=== PATIENT | male | born 1945 | race Caucasian/White ===

== ENCOUNTER 2016-08-21 02:39 | Emergency (ER) | payer BC ==
[2016-08-21] MEDS ORDERED: KETOROLAC TROMETHAMINE 15 MG/ML VIAL ONE (02:54)
[2016-08-21] MEDS ORDERED: HYDROMORPHONE HCL 1 MG/ML SYRINGE ONE ×2 (02:54→03:56)
[2016-08-21] MEDS ORDERED: ONDANSETRON 4 MG ODT TAB ONE (02:54)
[2016-08-21 03:01] LABS: SPECIFIC GRAVITY 1.025 (1.001-1.030); URINE BILIRUBIN NEGATIVE (NEGATIVE); URINE BLOOD NEGATIVE (NEGATIVE); URINE GLUCOSE (UA) NEGATIVE (NEGATIVE); URINE LEUKOCYTE ESTERASE NEGATIVE (NEGATIVE); URINE NITRITE NEGATIVE (NEGATIVE); URINE PROTEIN 1+ (NEGATIVE); URINE UROBILINOGEN NORMAL (0-1 mg/dl)
[2016-08-21 03:01] LABS: ABSOLUTE NEUTROPHIL COUNT 3.6 K/mm3 (1.8-7.7); BASO % 0.6 % (0.2-1.0); EOS # 0.3 (0.0-0.5); HEMATOCRIT 45.2 % (32.0-52.0); IMM NEUT% 0.5 % (0-1); LYMPH # 1.9 (1.0-4.8); LYMPH % 29.7 % (15-45); MEAN CELL VOLUME 94.4 fl (80.0-94.0); MEAN CORPUSCULAR HEMOGLOBIN 31.3 pg (27.0-31.0); MEAN CORPUSCULAR HGB CONC 33.2 g/dl (33.0-37.0); MEAN PLATELET VOLUME 9.1 fl (7.4-10.4); MONO # 0.7 (0.0-0.8); NEUT % 55.2 % (43-75); PLATELET COUNT 319 K/mm3 (130-400); RED CELL DISTRIBUTION WIDTH 11.9 % (11.5-14.5)
[2016-08-21 03:07] LABS: URINE APPEARANCE CLEAR; URINE COLOR YELLOW
[2016-08-21 03:14] LABS: URINE RBC RARE /hpf
[2016-08-21 03:14] LABS: ALB/GLOB RATIO 1.7 (>1.0); CALCIUM 9.3 mg/dL (8.6-10.3)
[2016-08-21 03:15] LABS: URINE BACTERIA 0; URINE EPITHELIAL CELLS 0 /hpf; URINE WBC RARE /hpf
--- NOTE | 2016-08-21 08:31 | RAD ---
ABDOMEN OR KUB COMPARISON: Ultrasound kidneys and retroperitoneal, 07/28/2012 HISTORY: 70-year-old male with right flank pain. Past medical history of 2 nonobstructive stones in the right kidney and bladder stones. FINDINGS: View: Supine abdomen. Bowel gas pattern: The small bowel is not distended. There is moderate fecal loading. Organomegaly: None. Soft tissue calcification: None. Surgical clips: None. Bones: No acute finding. Mild degenerative changes. IMPRESSION: 1. No visible stones in the kidneys, ureters, or bladder. CT is much more sensitive in the detection of stones, however. 2. Evidence of mild constipation. 3. Degenerative changes in the spine and pelvis.
== END 2016-08-21 04:38 | disposition home or self-care (01) ==
LOC: ED 02:39
DX: N20.1 Calculus of ureter (principal); Z87.442 Personal history of urinary calculi; Z87.891 Personal history of nicotine dependence
CPT/HCPCS: 85025; 80053; 81001; 74000; 96375; 96376; 99284; 96374; 99283; J1170 ×2; J1885; A9270

== ENCOUNTER 2016-08-21 22:11 | Emergency (ER) | payer BC ==
[2016-08-21] MEDS ORDERED: KETOROLAC TROMETHAMINE 15 MG/ML VIAL ONE (22:39)
[2016-08-21] MEDS ORDERED: ONDANSETRON 4 MG/2ML 2 ML VIAL ONE (22:39)
[2016-08-21] MEDS ORDERED: HYDROMORPHONE HCL 0.5 MG/0.5 ML SYRINGE ONE (22:39)
[2016-08-22] MEDS ORDERED: ONDANSETRON 4 MG ODT TAB ONE (00:19)
--- NOTE | 2016-08-22 07:57 | CT ---
Exam: CT abdomen and pelvis without contrast COMPARISON: Radiograph 08/21/[address] 08/04/2011 INDICATION: Left flank pain. TECHNIQUE: CT examination of the abdomen and pelvis was obtained without contrast using a renal stone protocol. FINDINGS: There is a 7 mm calculus at the left UPJ which is associated with mild left-sided hydronephrosis and mild asymmetric perinephric and retroperitoneal fat stranding. No additional calculi are identified within either kidney, ureter or bladder. Minor cortical scarring is again noted in the right kidney. There is moderate prostatomegaly. There is no significant pelvic lymphadenopathy by size criteria. The bowel, including the appendix, is unremarkable and there is no bowel obstruction, free air or free intraperitoneal fluid. The liver, spleen, pancreas, adrenal glands and gallbladder are unremarkable on this noncontrast exam. Small hiatal hernia is noted. There is minor atelectasis or scarring within the lung bases, right greater than left. Bridging osteophytes are noted within the thoracic spine. IMPRESSION: 1. 7 mm calculus at the left UPJ which is associated with mild left-sided hydronephrosis and asymmetric perinephric and retroperitoneal stranding. No additional urinary calculi are identified. 2. A few stable incidental findings as above. Preliminary report transmitted to the emergency department from [facility] at 2324 hours 08/21/2016
== END 2016-08-22 00:23 | disposition home or self-care (01) ==
LOC: ED 22:11
DX: N20.1 Calculus of ureter (principal); R11.10 Vomiting, unspecified; Z87.442 Personal history of urinary calculi; Z87.891 Personal history of nicotine dependence
CPT/HCPCS: 74176; 96375 ×2; 99283 ×2; 96374; J1885; J2405; A9270; J1170